=== PATIENT | male | born 2000 | race Two or more races ===

== ENCOUNTER 2021-01-09 01:00 | Emergency (ER) | payer OTHER ==
[~2021-01-09] VITALS: Ht 182.9 cm; Wt 97.5 kg
[2021-01-09] MEDS ORDERED: ZITHROMAX500 MG PO (03:39)
[2021-01-09] MEDS ORDERED: TUSNEL LIQUID178 ML PO (03:39)
[2021-01-09] MEDS ORDERED: DOLOGEN CAPLET1 EACH PO (03:39)
[2021-01-09] MEDS ORDERED: ZYRTEC10 M3 PO (03:39)
== END 2021-01-09 04:03 | disposition home or self-care (01) ==
LOC: ER 01:00
DX: J06.9 Acute upper respiratory infection, unspecified (principal); B96.0 Mycoplasma pneumoniae [M. pneumoniae] as the cause of diseases classified elsewhere

== ENCOUNTER 2021-03-01 21:26 | Emergency (ER) | payer OTHER ==
[~2021-03-01] VITALS: Ht 182.9 cm; Wt 97.5 kg
[~2021-03-01 21:26] MED LIST: DOLOGEN CAPLET1 EACH PO; TUSNEL LIQUID178 ML PO; ZITHROMAX500 MG PO; ZYRTEC10 M3 PO
[2021-03-02] MEDS ORDERED: DOLOGESIC-DF 51 EACH PO (00:39)
== END 2021-03-02 00:57 | disposition home or self-care (01) ==
LOC: ER 21:26
DX: U07.1 COVID-19 (principal); B34.8 Other viral infections of unspecified site; Z20.822 Contact with and (suspected) exposure to COVID-19

== ENCOUNTER → 2025-02-12 | Emergency (ER) | payer OTHER ==
[~2025-02-12] VITALS: Ht 182.9 cm; Wt 97.5 kg
[~2025-02-12] MED LIST changes: +DEXAMETHASONE SODIUM PHOSPHATE 4 MG/ML VIAL IM ONE; +DEXAMETHASONE SODIUM PHOSPHATE 4 MG/ML VIAL ONE; +DOLOGESIC-DF 51 EACH PO; +KETO10TA2 PO; +KETOROLAC TROMETHAMINE 30 MG VIAL IM ONE; +KETOROLAC TROMETHAMINE 30 MG VIAL ONE; +NORFLEX100MG PO; +ORPHENADRINE CITRATE 30 MG/ML AMPUL IM ONE; +ORPHENADRINE CITRATE 30 MG/ML AMPUL ONE
== END | disposition home or self-care (01) ==
LOC: ER 19:22
DX: S69.81XA Other specified injuries of right wrist, hand and finger(s), initial encounter (principal); Y93.67 Activity, basketball; Y93.89 Activity, other specified; Y92.89 Other specified places as the place of occurrence of the external cause